=== PATIENT | female | born 2000 | race Two or more races ===

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

== ENCOUNTER 2023-01-30 11:35 | Emergency (ER) | payer OTHER ==
[~2023-01-30] VITALS: Ht 165.1 cm; Wt 78.3 kg
[~2023-01-30 11:35] MED LIST changes: +OMEP-173; -OMEP-218
[2023-01-30 12:51] LABS: BASO # 0.1 10^3/uL (0.0-0.2); BASO % 0.6 % (0.0-1.0); EOS # 0.2 10^3/uL (0.0-0.5); EOS % 2.1 % (0.0-3.0); HEMATOCRIT 41.6 % (36.0-47.0); HEMOGLOBIN 13.8 g/dl (12.0-15.5); LYMPH # 1.5 10^3/uL (1.5-5.0); LYMPH % 19.7 % (24.0-44.0); MEAN CORPUSCULAR HEMOGLOBIN 30.6 pg (27.0-33.0); MEAN CORPUSCULAR HGB CONC 33.2 g/dl (32.0-36.5); MEAN CORPUSCULAR VOLUME 92.2 fl (80.0-96.0); MONO # 0.4 10^3/uL (0.0-0.8); MONO % 5.5 % (2.0-8.0); NEUTROPHILS # 5.5 10^3/uL (1.5-8.5); NEUTROPHILS % 71.7 % (36.0-66.0); PLATELET COUNT, AUTOMATED 393 10^3/uL (150-450); RED BLOOD COUNT 4.51 10^6/uL (4.00-5.40); WHITE BLOOD COUNT 7.7 10^3/uL (4.0-10.0)
[2023-01-30 13:16] LABS: BLOOD UREA NITROGEN 9 MG/DL (9-23); CARBON DIOXIDE LEVEL 24 MMOL/L (20-31); CHLORIDE LEVEL 107 MMOL/L (98-107); CREATININE FOR GFR 0.67 MG/DL (0.55-1.30); GLOMERULAR FILTRATION RATE > 60.0 (>60); GLUCOSE, FASTING 77 MG/DL (60-100); POTASSIUM SERUM 4.2 MMOL/L (3.5-5.1); SODIUM LEVEL 139 MMOL/L (136-145)
[2023-01-30] MEDS ORDERED: KETOROLAC 30 MG/ML 1ML VIAL IV ONE (14:55)
[2023-01-30 15:04] VITALS: BP 124/72; TEMP 98; O2SAT 100
[2023-01-30] MEDS ORDERED: TRAN650T PO (15:17)
== END 2023-01-30 15:26 | disposition home or self-care (01) ==
LOC: M ED 11:35
DX: N93.8 Other specified abnormal uterine and vaginal bleeding (principal); N88.8 Other specified noninflammatory disorders of cervix uteri; E03.9 Hypothyroidism, unspecified; F17.290 Nicotine dependence, other tobacco product, uncomplicated; Z79.899 Other long term (current) drug therapy; Z88.6 Allergy status to analgesic agent; Z88.5 Allergy status to narcotic agent
CPT/HCPCS: 76830; 76856; 80048; 84702; 85025; 86850; 86900; 86901; 93976; 96374; 99284; J1885

== ENCOUNTER → 2023-03-06 | Outpatient (CLI) | payer OTHER ==
[~2023-03-06] MED LIST changes: +PROHANCE 279.3MG/ML 15ML VIAL As Ordered ONE; +TRAN650T PO
== END ==
LOC: M RAD 08:22
PROVIDERS: ATTEND Obstetrics & Gynecology
DX: N93.9 Abnormal uterine and vaginal bleeding, unspecified (principal); Q51.810 Arcuate uterus; N88.8 Other specified noninflammatory disorders of cervix uteri; N83.202 Unspecified ovarian cyst, left side
CPT/HCPCS: 72197; A9576

== ENCOUNTER 2024-01-04 11:10 | Emergency (ER) | payer OTHER ==
[~2024-01-04] VITALS: Ht 165.1 cm; Wt 68.7 kg
[~2024-01-04 11:10] MED LIST changes: -PROHANCE 279.3MG/ML 15ML VIAL As Ordered ONE
[2024-01-04] MEDS ORDERED: MULTTAB20 PO (11:31)
[2024-01-04] MEDS ORDERED: SYNT112T2 (11:31)
[2024-01-04 12:11] LABS: BASO % 0.6 % (0.0-1.0); EOS # 0.1 10^3/uL (0.0-0.5); EOS % 0.9 % (0.0-3.0); HEMATOCRIT 37.4 % (36.0-47.0); HEMOGLOBIN 12.7 g/dl (12.0-15.5); LYMPH # 1.5 10^3/uL (1.5-5.0); LYMPH % 27.3 % (24.0-44.0); MEAN CORPUSCULAR HEMOGLOBIN 30.9 pg (27.0-33.0); MONO # 0.5 10^3/uL (0.0-0.8); NEUTROPHILS # 3.3 10^3/uL (1.5-8.5); NEUTROPHILS % 60.8 % (36.0-66.0); PLATELET COUNT, AUTOMATED 322 10^3/uL (150-450); RED BLOOD COUNT 4.11 10^6/uL (4.00-5.40); WHITE BLOOD COUNT 5.4 10^3/uL (4.0-10.0)
[2024-01-04 12:40] LABS: BLOOD UREA NITROGEN 7 MG/DL (9-23); CALCIUM LEVEL 9.8 MG/DL (8.5-10.1); CARBON DIOXIDE LEVEL 25 MMOL/L (20-31); CHLORIDE LEVEL 107 MMOL/L (98-107); CREATININE FOR GFR 0.58 MG/DL (0.55-1.30); GLOMERULAR FILTRATION RATE > 60.0 (>60); GLUCOSE, FASTING 66 MG/DL (60-100); POTASSIUM SERUM 4.3 MMOL/L (3.5-5.1); SODIUM LEVEL 139 MMOL/L (136-145)
[2024-01-04 13:07] LABS: HCG, SERUM QUANTITATIVE 16885.2 MIU/ML (<4.2)
[2024-01-04] MEDS: ACETAMINOPHEN TAB 650MG DOSE (2X325MG) PO ONE (13:29)
[2024-01-04 13:57] VITALS: BP 120/66; TEMP 98.1; O2SAT 100
== END 2024-01-04 15:06 | disposition home or self-care (01) ==
LOC: M ED 11:10
DX: O26.891 Other specified pregnancy related conditions, first trimester (principal); R10.32 Left lower quadrant pain; O99.281 Endocrine, nutritional and metabolic diseases complicating pregnancy, first trimester; E03.9 Hypothyroidism, unspecified; Z88.5 Allergy status to narcotic agent; Z88.6 Allergy status to analgesic agent; Z3A.01 Less than 8 weeks gestation of pregnancy